=== PATIENT | male | born 1975 | race Caucasian/White ===

== ENCOUNTER → 2017-02-08 | Outpatient (CLI) | payer OTHER ==
[~2017-02-08] MED LIST: GADOBUTROL 7.5 MMOL/7.5 ML VIAL INT ART ONE; IOHEXOL 300 MG/ML 50 ML VIAL. INT ART ONE; LIDOCAINE 1% Multi-Dose 20 ML VIAL. ID ONE
--- NOTE | 2017-02-08 13:34 | KCIC ---
PROCEDURE MRI arthrogram right hip dated 02/08/2017. HISTORY Right hip pain for 10 years. No known injury. TECHNIQUE Routine MR arthrogram performed after the intra-articular injection of dilute gadolinium. Injection portion of the study was performed by for radiologist. Procedural details will be reported separately. COMPARISON None. FINDINGS Adequate distention of the joint space. There is mild thinning of the articular cartilage at the anterior acetabulum and femoral head. No full-thickness cartilage defect. Blunted morphology and ill definition of the anterior superior labrum. No communicating tear. The remaining labrum is intact. No perilabral cyst. There is mild outward convexity of the femoral head/neck junction with small subchondral cysts at the anterior humeral head. Mild increased signal within the gluteus minimus and gluteus medius tendons at the trochanteric attachment. No full thickness tear or significant partial thickness defect. No significant trochanteric bursal fluid collection. Proximal hamstring tendon complex is intact. Iliopsoas is intact. Small amount of contrast extends into the iliopsoas bursa. IMPRESSION - Degenerative fraying and/or partial tearing of the anterior superior right hip labrum. No discrete labral tear or paralabral cyst. - Mild outward convex deformity of the femoral head/neck junction with small subchondral cyst. This suggests femoral acetabular impingement. - Mild gluteal gluteus minimus and gluteus medius tendinosis. Electronically signed by: Danial Carrillo (Feb 08, 2017 13:33:23)
--- NOTE | 2017-02-08 14:12 | KCIC ---
PROCEDURE Right hip arthrogram. HISTORY Pain for 10 years. No known injury. TECHNIQUE The procedure, its risks and benefits, and potential complications were discussed with the patient. All questions were answered. Written consent to proceed was obtained. Timeout procedure was performed. Patient was prepped and draped in the usual manner. 1 percent lidocaine was administered locally. 22 gauge spinal needle was positioned into the hip joint. Positioning was confirmed with 4 milliliters of Omnipaque 300. Subsequently, 13 milliliters of a mixture of 20 milliliters of normal saline and 0.1 milliliters of Gadavist was injected. Needle was withdrawn. Patient tolerated the procedure well. He was transferred to the MRI suite for additional imaging which will be reported separately. An image documenting needle position was stored. Image count is 1. Fluoroscopy time is 44 seconds. IMPRESSION Right hip injection for MRI. Electronically signed by: Onesimo Phelan MD (Feb 08, 2017 14:10:46)
== END | disposition home or self-care (01) ==
LOC: KCIC 10:12
PROVIDERS: ATTEND Physician Assistant
DX: S73.191A Other sprain of right hip, initial encounter (principal); X58.XXXA Exposure to other specified factors, initial encounter; Y93.89 Activity, other specified; Y92.89 Other specified places as the place of occurrence of the external cause; Y99.8 Other external cause status
CPT/HCPCS: 73525; 73722; Q9967; A9585

== ENCOUNTER → 2017-03-22 | Outpatient (CLI) | payer OTHER ==
[~2017-03-22] MED LIST changes: +IOHEXOL 300 MG/ML 10ML VIAL. INT ART ONE; -IOHEXOL 300 MG/ML 50 ML VIAL. INT ART ONE
--- NOTE | 2017-03-22 16:28 | KCIC ---
EXAM: Fluoroscopic guided right shoulder injection for MR arthrography. HISTORY: Pain. TECHNIQUE: The risks of the procedure were discussed with the patient and written and verbal consent was obtained. A time out was performed. Fluoroscopic imaging of the right shoulder was performed and a site overlying the joint space was selected for needle entry. The skin overlying this region was sterilely prepped, draped and infiltrated with 1% lidocaine. A spinal needle was then advanced into the joint space with fluoroscopic guidance. A solution containing 0.1 cc gadavist, 5 cc Omnipaque 300, 5 cc lidocaine and 10 cc saline was injected into the joint space. Fluoroscopic images demonstrate intraarticular accumulation of contrast. The needle was removed and a sterile bandage was placed at the needle entry site. The patient tolerated the procedure without difficulty and was transferred to the MR suite for the post injection MR portion of the exam. The total fluoroscopy time was 50 seconds and a single fluoroscopic image is obtained. IMPRESSION: Fluoroscopic guided right shoulder injection for MR arthrography. Please refer to the separate MR arthrogram report for further evaluation details. Electronically signed by: Evelyn Hdz MD (03/22/2017 4:25 PM)
--- NOTE | 2017-03-22 17:13 | KCIC ---
MR arthrogram of the right shoulder HISTORY: Right shoulder pain 3 months after a fall. TECHNIQUE: Intra-articular contrast injected by a different radiologist who will dictate that separately. Routine multiplanar sequences are obtained. FINDINGS: Acromioclavicular joint is mildly degenerative. Tiny undersurface osteophyte at the undersurface of the acromion. Rotator cuff demonstrates thickening and hyperintense signal, compatible with tendinosis. No measurable defect or rupture of the rotator cuff. There is mild ill-definition or fraying of the bursal surface of the supraspinatus and infraspinatus tendon. Trace fluid but no significant contrast in the subdeltoid bursa. Degenerative tear of the superior and posterior labrum. Tear identified at the anteroinferior labrum. No advanced primary osteoarthritis. Biceps tendon is intact. No bone lesion or acute fracture. No acute soft tissue injury. IMPRESSION: 1. Posterior through superior labral tear. 2. Anteroinferior labral tear. 3. Rotator cuff tendinosis. No measurable defect or rupture. Electronically signed by: Danial Denis MD (03/22/2017 5:09 PM)
== END | disposition home or self-care (01) ==
LOC: KCIC 14:46
PROVIDERS: ATTEND Family Medicine
DX: S43.431D Superior glenoid labrum lesion of right shoulder, subsequent encounter (principal); X58.XXXD Exposure to other specified factors, subsequent encounter
CPT/HCPCS: 73040; 73222; Q9967; A9585

== ENCOUNTER 2017-11-21 22:06 | Inpatient (IN) | payer OTHER ==
[2017-11-21] MEDS ORDERED: ONDANSETRON PF 4 MG/2 ML VIAL. IV (23:15)
[2017-11-22] MEDS: IV NORMAL SALINE 1000ML BAG 1,000 ML IV ×2 (00:01→12:50)
[2017-11-22] MEDS ORDERED: ACETAMINOPHEN 325 MG TABLET. PO (08:45)
[2017-11-22] MEDS: CIPROFLOXACIN 400MG PREMIX 200 ML IV ×2 (09:29→20:48)
[2017-11-22] MEDS: MORPHINE SULFATE 2 MG/ML DISP.SYRIN. IV ×3 (09:32→22:28)
[2017-11-22 09:37] LABS: ADD MAN DIFF? NO
[2017-11-22 09:55] LABS: BASO % 0 % (0-3); EOS # 0.1 x10^3/uL (0.0-0.7); EOS % 1 % (0-3); HEMATOCRIT 40.4 % (39.0-53.0); HEMOGLOBIN 13.9 g/dL (13.0-17.5); LYMPH # 1.8 x10^3/uL (1.0-4.8); LYMPH % 24 % (24-48); MEAN CORPUSCULAR HEMOGLOBIN 30 pg (25-35); MEAN CORPUSCULAR HGB CONC 34 g/dL (31-37); MEAN CORPUSCULAR VOLUME 86 fL (79-100); MONO # 0.8 x10^3/uL (0.0-1.1); MONO % 10 % (0-9); NEUT # 4.8 x10^3uL (1.8-7.7); NEUT % 64 % (31-73); PLATELET COUNT 253 x10^3/uL (140-400); RED BLOOD COUNT 4.69 x10^6/uL (4.30-5.70); RED CELL DISTRIBUTION WIDTH 13.8 % (11.5-14.5); WHITE BLOOD COUNT 7.4 x10^3/uL (4.0-11.0)
[2017-11-22 09:57] LABS: ANION GAP 9 (6-14); BLOOD UREA NITROGEN 13 mg/dL (8-26); C-REACTIVE PROTEIN 13.4 mg/L (0-3.3); CARBON DIOXIDE 28 mmol/L (21-32); CHLORIDE 105 mmol/L (98-107); GFR 81.6; GLUCOSE 98 mg/dL (70-99); POTASSIUM 4.5 mmol/L (3.5-5.1); SODIUM 142 mmol/L (136-145)
[2017-11-22 11:20] LABS: INR 1.2 (0.8-1.1)
[2017-11-22 12:12] LABS: SEDIMENTATION RATE 18 (0-15)
[2017-11-23] MEDS: IV NORMAL SALINE 1000ML BAG 1,000 ML IV (05:46)
[2017-11-23 06:05] LABS: ADD MAN DIFF? NO
[2017-11-23 06:35] LABS: BASO % 0 % (0-3); EOS # 0.1 x10^3/uL (0.0-0.7); EOS % 2 % (0-3); HEMATOCRIT 39.7 % (39.0-53.0); HEMOGLOBIN 13.5 g/dL (13.0-17.5); LYMPH # 2.2 x10^3/uL (1.0-4.8); LYMPH % 30 % (24-48); MEAN CORPUSCULAR HEMOGLOBIN 30 pg (25-35); MEAN CORPUSCULAR HGB CONC 34 g/dL (31-37); MEAN CORPUSCULAR VOLUME 87 fL (79-100); MONO # 0.7 x10^3/uL (0.0-1.1); MONO % 9 % (0-9); NEUT # 4.3 x10^3uL (1.8-7.7); NEUT % 59 % (31-73); PLATELET COUNT 247 x10^3/uL (140-400); RED BLOOD COUNT 4.55 x10^6/uL (4.30-5.70); RED CELL DISTRIBUTION WIDTH 13.9 % (11.5-14.5); WHITE BLOOD COUNT 7.3 x10^3/uL (4.0-11.0)
[2017-11-23 06:38] LABS: ANION GAP 6 (6-14); BLOOD UREA NITROGEN 10 mg/dL (8-26); CALCIUM 8.7 mg/dL (8.5-10.1); CARBON DIOXIDE 29 mmol/L (21-32); CHLORIDE 104 mmol/L (98-107); CREATININE 0.9 mg/dL (0.7-1.3); GFR 92.1; GLUCOSE 97 mg/dL (70-99); POTASSIUM 3.9 mmol/L (3.5-5.1); SODIUM 139 mmol/L (136-145)
[2017-11-23] MEDS: CIPROFLOXACIN 400MG PREMIX 200 ML IV (08:04)
[2017-11-23] MEDS ORDERED: HYDROcodone/APAP 5/325MG 1 TAB TABLET PO (09:45)
[2017-11-23] MEDS ORDERED: POLYETHYLENE GLYCOL 3350 17 GM PACKET. PO (10:00)
== END 2017-11-23 13:35 | disposition home or self-care (01) | DRG 392 ==
LOC: 4 NORTH 22:06
DX: K52.9 Noninfective gastroenteritis and colitis, unspecified (principal); F32.9 Major depressive disorder, single episode, unspecified; K63.89 Other specified diseases of intestine; Z80.1 Family history of malignant neoplasm of trachea, bronchus and lung; Z85.118 Personal history of other malignant neoplasm of bronchus and lung; Z88.0 Allergy status to penicillin; Z80.42 Family history of malignant neoplasm of prostate
CPT/HCPCS: 36415; 80048; 85025; 85610; 85651; 86140; J0744; J2270; J3490; J7030

== ENCOUNTER → 2018-01-24 | Day surgery (SDC) | payer OTHER ==
[~2018-01-24] MED LIST changes: -GADOBUTROL 7.5 MMOL/7.5 ML VIAL INT ART ONE; -IOHEXOL 300 MG/ML 10ML VIAL. INT ART ONE; -LIDOCAINE 1% Multi-Dose 20 ML VIAL. ID ONE; +LIDOCAINE 1% PF 2 ML VIAL. ID; +LIDOCAINE 2% 100 MG/5 ML SYRINGE.; +MIDAZOLAM HCL/PF 2 MG/2 ML VIAL. IV; +PROPOFOL 40 ML IV; +fentaNYL PF VIAL 100 MCG/2 ML VIAL IV
[2018-01-24] MEDS: IV RINGERS,LACTATED 1000ML 1,000 ML IV (06:52)
== END | disposition home or self-care (01) ==
LOC: ENDOS 07:12
DX: K64.0 First degree hemorrhoids (principal); K57.30 Diverticulosis of large intestine without perforation or abscess without bleeding; Z88.0 Allergy status to penicillin; F32.9 Major depressive disorder, single episode, unspecified; Z98.890 Other specified postprocedural states; Z79.899 Other long term (current) drug therapy
CPT/HCPCS: 45378; J2704